=== PATIENT | female | born 1980 | race Asian ===

== ENCOUNTER 2016-04-26 23:08 | Emergency (ER) | payer OTHER ==
[2016-04-26 23:21] VITALS: PULSE 104; O2SAT 97
[2016-04-26] MEDS ORDERED: TDAP ADULT 0.5 ML INJ (BOOSTRIX) IM ONE (23:33)
--- NOTE | 2016-04-26 23:39 | EDPHY ---
H & P Time Seen by Provider: 04/26/16 23:28 HPI/ROS: CHIEF COMPLAINT: Laceration right foot HISTORY OF PRESENT ILLNESS: 36-year-old female with out-of-date tetanus arrives via private vehicle after she sustained accidental laceration to right dorsal forefoot when she was at work and a plate dropped in broken into multiple pieces. Denies foreign body sensation. No paresthesia. PHYSICAL EXAM (Prior to examination, patient consented to physical exam, hands were washed and my usual and customary physical exam procedures followed) 1) GENERAL: Well-developed, well-nourished, alert and oriented. Appears to be in no acute distress. 2) HEAD: Normocephalic 3) HEENT: sclera anicteric 4) LUNGS: Breathing comfortably. 5) SKIN: Right dorsal forefoot approximately 4th MTP 2.5 cm laceration. 6) MUSCULOSKELETAL: flexion extension intact no deficits. Smoking Status: Never smoked Constitutional: Initial Vital Signs Temperature (C) 37.4 C 04/26/16 23:17 Heart Rate 104 H 04/26/16 23:17 Respiratory Rate 20 04/26/16 23:17 Blood Pressure 147/100 H 04/26/16 23:17 O2 Sat (%) 97 04/26/16 23:17 O2 Delivery Mode Room Air Allergies/Adverse Reactions: latex Allergy (Verified 04/26/16 23:17) Home Medications: Medication Instructions Recorded NK [No Known Home Meds] 04/26/16 MDM/Departure - MDM Diagnostics: Xray of the right foot interpreted by myself: no definitive acute osseous abnormality, no radiopaque foreign body Procedures: Procedure: Laceration repair. I explained the indications, risks and benefits for both laceration repair and anesthetic administration. Verbal consent was obtained from the patient . The laceration on the right foot was anesthetized using 0.5% bupivicaine with epinephrine . After anesthetic administered the patient was observed for a period of time and had no apparent adverse effects. The wound was cleaned, prepped, draped in normal sterile fashion and explored to its base. No foreign body seen, no foreign bodies palpated. There were no deep structures involved. No tendon injury was identified. The wound was repaired with 5 simple interrupted 4 0 Prolene suture. The wound repair was simple. The procedure was performed by myself. Patient has been informed that scarring will occur, although efforts have been made to minimize this. Procedure: Splint A postop shoe splint was applied by ER biomedical equipment technician. After application of the splint I returned and re-examined the patient. The splint was adequately immobilizing the joint and distal to the splint the patient's circulation and sensation were intact. Medications Given: Discontinued Medications Diphtheria/Tetanus/Acell Pertussis (Boostrix) 0.5 ml IM .ONCE ONE Stop: 04/26/16 23:34 Last Admin: 04/26/16 23:48 Dose: 0.5 ml - Depart Disposition: Home, Routine, Self-Care Clinical Impression: Laceration of right foot Qualifiers: Encounter type: initial encounter Qualifier Code: (S91.311A) Laceration without foreign body, right foot, initial encounter Condition: Good Instructions: Laceration (ED), Care For Your Stitches (ED) Additional Instructions: Return to the ER if you develop redness, swelling, discharge, warmth to the wound, red streaks going up your leg, or any other symptoms that concern you. Stand Alone Forms: Work Comp Follow Up Referrals: Return, to the ER in 14 days for suture removal [Other] - As per Instructions
[2016-04-27 00:56] VITALS: BP 142/82; RESP 16; TEMP 97.7
--- NOTE | 2016-04-27 06:43 | DX ---
Right Foot Minimum 3 Views History: Trauma, pain. Plate fell on foot. Comparison: None. Findings: No acute fracture or dislocation identified. Toes and metatarsals demonstrate no fracture. No definite tarsal bone fracture. Impression: 1. No definite acute fracture. 2. Recommend additional imaging if symptoms persist, if clinically indicated.
== END 2016-04-27 00:56 | disposition home or self-care (01) ==
PROC: 0HQMXZZ Repair Right Foot Skin, External Approach (ICD-10-PCS; principal; 2016-04-26)
DX: S91.311A Laceration without foreign body, right foot, initial encounter (principal); Z23 Encounter for immunization; Z91.040 Latex allergy status; W20.8XXA Other cause of strike by thrown, projected or falling object, initial encounter; Y92.69 Other specified industrial and construction area as the place of occurrence of the external cause; Y99.0 Civilian activity done for income or pay; Y93.89 Activity, other specified
CPT/HCPCS: L3260